=== PATIENT | female | born 1990 | race Two or more races ===

== ENCOUNTER 2016-06-03 13:18 | Emergency (ER) | payer OTHER ==
[2016-06-03 13:23] VITALS: PULSE 60; RESP 16
--- NOTE | 2016-06-03 13:46 | EDPHY ---
H & P Stated Complaint: Migraine x 2 wks;saw PCP,no RX given;+nausea Time Seen by Provider: 06/03/16 13:33 HPI/ROS: CHIEF COMPLAINT: Headache HISTORY OF PRESENT ILLNESS: The patient presents to the ED with a progressively worsening intermittent headache for the past 10 days. The patient describes a dull but severe left retro-orbital and temporal discomfort. Patient does have a reported history of migraine syndrome but reports much milder atypical symptoms with prior migraines. The patient denies any history of recent fall or trauma. She specifically denies peripheral numbness, weakness , diplopia, cervical manipulation, neck pain or injury. The patient is currently being treated for possible PID and recently was given an IM dose of ceftriaxone and apparently will be starting doxycycline today. The patient denies any significant abdominal pain or vaginal discharge the time of my evaluation in the ED. The patient does not smoke or use control of pills. The patient does take Celexa. REVIEW OF SYSTEMS: A comprehensive 10 point review of systems is otherwise negative aside from elements mentioned in the history of present illness. Source: Patient Exam Limitations: No limitations - Personal History LMP (Females 10-55): 8-14 Days Ago Current Tetanus Diphtheria and Acellular Pertussis (TDAP): Yes - Medical/Surgical History Other PMH: migraines. depression - Social History Smoking Status: Never smoked - Physical Exam Exam: General Appearance: Alert, no distress Eyes: Pupils equal and round no pallor or injection ENT, Mouth: Mucous membranes moist Respiratory: There are no retractions, lungs are clear to auscultation Cardiovascular: Regular rate and rhythm Gastrointestinal: Abdomen is soft and nontender, no masses, bowel sounds normal Neurological: A&O, normal motor function, normal sensory exam, normal cranial nerves Skin: Warm and dry, no rashes Musculoskeletal: Neck is supple nontender Extremities: symmetrical, full range of motion Constitutional: Initial Vital Signs Temperature (C) 36.7 C 06/03/16 13:20 Heart Rate 60 06/03/16 13:20 Respiratory Rate 16 06/03/16 13:20 Blood Pressure 113/64 06/03/16 13:20 O2 Sat (%) 98 06/03/16 13:20 O2 Delivery Mode Room Air Allergies/Adverse Reactions: No Known Allergies Allergy (Unverified 06/03/16 13:23) Home Medications: Medication Instructions Recorded Ondansetron Odt [Zofran Odt] 4 mg PO Q4PRN PRN #20 tab 06/03/16 Sertraline HCl [Zoloft 25mg (*)] 25 mg PO DAILY 06/03/16 Medical Decision Making - Diagnostics Imaging: MRI brain without contrast: Images reviewed by myself and discussed with radiologist Dr. Az Shaikh. Negative for acute abnormality, indirect evidence of central vein thrombosis, tumor or hemorrhage. ED Course/Re-evaluation: The patient presents to the emergency department for evaluation of an intermittent headache for the past 10 days. The features of this headache are consistent with a migraine type headache with a strong left retro-orbital component. The patient is noted to have a normal neurologic examination here in the ED. Given the chronicity of her headache and increased severity an MRI of the brain was obtained which is normal. The patient was treated with IV Reglan and Toradol. I re-evaluated the patient at 3:40 p.m. and her headache is entirely resolved. She is comfortable being discharged home. She will be given a prescription for Zofran and encouraged to take ibuprofen as needed. Differential Diagnosis: Differential diagnosis considered includes intracranial mass, cavernous vein thrombosis, migraine syndrome, intracranial hemorrhage, meningitis, tension headache - Data Points Laboratory Results: Laboratory Results 06/03/16 14:00 06/03/16 14:00 06/03/16 06/03/16 06/03/16 14:00 14:00 14:00 WBC 8.41 10^3/uL 10^3/uL (3.80-9.50) RBC 4.91 10^6/uL 10^6/uL (4.18-5.33) Hgb 14.2 g/dL g/dL (12.6-16.3) Hct 42.9 % % (38.0-47.0) MCV 87.4 fL fL (81.5-99.8) MCH 28.9 pg pg (27.9-34.1) MCHC 33.1 g/dL g/dL (32.4-36.7) RDW 12.5 % % (11.5-15.2) Plt Count 256 10^3/uL 10^3/uL (150-400) MPV 8.8 fL fL (8.7-11.7) Neut % (Auto) 68.9 % % (39.3-74.2) Lymph % (Auto) 25.7 % % (15.0-45.0) Kay % (Auto) 4.8 % % (4.5-13.0) Eos % (Auto) 0.4 % L % (0.6-7.6) Baso % (Auto) 0.1 % L % (0.3-1.7) Nucleat RBC Rel Count 0.0 % % (0.0-0.2) Absolute Neuts (auto) 5.80 10^3/uL 10^3/uL (1.70-6.50) Absolute Lymphs (auto) 2.16 10^3/uL 10^3/uL (1.00-3.00) Absolute Monos (auto) 0.40 10^3/uL 10^3/uL (0.30-0.80) Absolute Eos (auto) 0.03 10^3/uL 10^3/uL (0.03-0.40) Absolute Basos (auto) 0.01 10^3/uL L 10^3/uL (0.02-0.10) Absolute Nucleated RBC 0.00 10^3/uL 10^3/uL (0-0.01) Immature Gran % 0.1 % % (0.0-1.1) Immature Gran # 0.01 10^3/uL 10^3/uL (0.00-0.10) Sodium 142 mEq/L mEq/L (134-144) Potassium 3.6 mEq/L mEq/L (3.5-5.2) Chloride 108 mEq/L mEq/L (97-110) Carbon Dioxide 24 mEq/l mEq/l (22-31) Anion Gap 10 mEq/L mEq/L (8-16) BUN 11 mg/dL mg/dL (7-23) Creatinine 0.7 mg/dL mg/dL (0.6-1.0) Estimated GFR > 60 Glucose 83 mg/dL mg/dL (70-100) Calcium 9.2 mg/dL mg/dL (8.5-10.4) Beta HCG, Qual NEGATIVE Medications Given: Discontinued Medications Ketorolac Tromethamine (Toradol) 30 mg IVP EDNOW ONE Stop: 06/03/16 13:55 Last Admin: 06/03/16 14:18 Dose: 30 mg Metoclopramide HCl (Reglan Injection) 10 mg IVP EDNOW ONE Stop: 06/03/16 13:55 Last Admin: 06/03/16 14:19 Dose: 10 mg Departure - Departure Disposition: Home, Routine, Self-Care Clinical Impression: Migraine Condition: Good Instructions: Acute Headache (ED), Migraine Headache (ED) Additional Instructions: 1. Please return to the ED for any concerns. 2. Take Ibuprofen or Motrin 600 mg by mouth three times a day. 3. Zofran for nausea. Referrals: Earl Bobo DO [Medical Doctor] - As per Instructions Prescriptions: Ondansetron Odt [Zofran Odt] 4 mg PO Q4PRN PRN #20 tab PRN Reason: For Nausea
[2016-06-03] MEDS ORDERED: METOCLOPRAMIDE 10 MG/2 ML VIAL IVP ONE (13:54)
[2016-06-03] MEDS ORDERED: KETOROLAC 30 MG/1 ML SDV IVP ONE (13:54)
[2016-06-03 14:08] LABS: % IMMATURE GRANULYOCYTES 0.1 % (0.0-1.1); ABSOLUTE IMMATURE GRANULOCYTES 0.01 10^3/uL (0.00-0.10); ADD DIFF? NO; ADD MORPH? NO; ADD SCAN? NO; ATYPICAL LYMPHOCYTE FLAG 0 (0-99); FRAGMENT RBC FLAG 0 (0-99); HEMATOCRIT 42.9 % (38.0-47.0); HEMOGLOBIN 14.2 g/dL (12.6-16.3); LEFT SHIFT FLG 0 (0-99); LIPEMIA HEMOLYSIS FLAG 80 (0-99); MEAN CELL HEMOGLOBIN 28.9 pg (27.9-34.1); MEAN CELL HEMOGLOBIN CONCENTR. 33.1 g/dL (32.4-36.7); MEAN CELL VOLUME 87.4 fL (81.5-99.8); MEAN PLATELET VOLUME 8.8 fL (8.7-11.7); PLATELET CLUMPS FLAG 10 (0-99); PLATELET COUNT 256 10^3/uL (150-400); RED BLOOD CELL COUNT 4.91 10^6/uL (4.18-5.33); RED CELL DISTRIBUTION WIDTH 12.5 % (11.5-15.2)
[2016-06-03 14:21] LABS: ANION GAP 10 mEq/L (8-16); CALCIUM 9.2 mg/dL (8.5-10.4); CARBON DIOXIDE 24 mEq/l (22-31); CHLORIDE 108 mEq/L (97-110); CREATININE 0.7 mg/dL (0.6-1.0); GLOMERULAR FILTRATION RATE > 60; GLUCOSE 83 mg/dL (70-100); POTASSIUM 3.6 mEq/L (3.5-5.2); SODIUM 142 mEq/L (134-144)
[2016-06-03] MEDS ORDERED: NS 1,000 ML IV ONE (15:00)
[2016-06-03 16:00] VITALS: BP 130/78; TEMP 98.4; O2SAT 94
== END 2016-06-03 16:01 | disposition home or self-care (01) ==
DX: G43.909 Migraine, unspecified, not intractable, without status migrainosus (principal)
CPT/HCPCS: 96374; J1885; J2765

== ENCOUNTER 2017-03-29 20:35 | Emergency (ER) | payer OTHER ==
[2017-03-29 20:56] VITALS: RESP 16
--- NOTE | 2017-03-29 20:57 | EDPHY ---
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 She reports that this is similar to her other migraine headaches. She currently started her menses today. She admits that she is in finals and is had increased stress. She has had a poor appetite but has been eating and drinking normally. Modifying Factors: See above Comment: ROS: see HPI Constitutional: No fever, no chills, no weight loss Eyes: No blurred vision Respiratory: No shortness of breath, no cough Cardiovascular: No chest pain Gastrointestinal: No nausea, no vomiting, no diarrhea Genitourinary: No dysuria Extremities: No myalgias Neurologic: No weakness, no numbness Skin: No rashes Hematologic: No bruising, no bleeding MEDICAL/SURGICAL/SOCIAL HISTORY: Medical history: Migraines, depression. Surgical history: Denies Social history: Local college student CONSTITUTIONAL: Extremely well-appearing adult female, awake and alert, no obvious distress HEENT: Atraumatic and normocephalic, PERRL, EOMI. Tympanic membranes clear. Oropharynx clear, no exudate and moist pink mucosa. Airway patent. No lymphadenopathy. No meningismus. No pain with buddhism palpation. Cardiovascular: Normal S1/S2, regular rate, regular rhythm, without murmur rub or gallop. PULMONARY/CHEST: Symmetrical and nontender. Clear to auscultation bilaterally. Good air movement. No accessory muscle usage. ABDOMEN: Soft, nondistended, nontender, no rebound, no guarding, no peritoneal signs, no masses or organomegaly. No CVAT. EXTREMITIES: 2/2 pulses, strength 5/5, no deformities, no clubbing, no cyanosis or edema. NEUROLOGICAL: no focal neuro deficits. GCS 15. Cranial nerves 2-12 grossly intact. Speech clear. SKIN: Warm and dry, no erythema. no rash. Good capillary refill. Source: Patient Exam Limitations: No limitations - Personal History LMP (Females 10-55): Now Current Tetanus/Diphtheria Vaccine: Unsure Current Tetanus Diphtheria and Acellular Pertussis (TDAP): Unsure - Medical/Surgical History Hx Asthma: No Hx Chronic Respiratory Disease: No Hx Diabetes: No Hx Cardiac Disease: No Hx Renal Disease: No Hx Cirrhosis: No Hx Alcoholism: No Hx HIV/AIDS: No Hx Splenectomy or Spleen Trauma: No Other PMH: migraines. depression - Social History Smoking Status: Never smoked Constitutional: Initial Vital Signs Temperature (C) 36.9 C 03/29/17 20:51 Heart Rate 84 03/29/17 20:51 Respiratory Rate 16 03/29/17 20:51 Blood Pressure 121/72 H 03/29/17 20:51 O2 Sat (%) 96 03/29/17 20:51 O2 Delivery Mode Room Air O2 (L/minute) 2 Allergies/Adverse Reactions: No Known Allergies Allergy (Unverified 03/29/17 20:56) Home Medications: Medication Instructions Recorded Acet/Caffeine/Buta Fioricet 1 each PO Q6 PRN #10 tab 03/29/17 [Fioricet (*)] SUMATRIPTAN SUCCINATE 4 mg SQ 03/29/17 Topiramate [Topamax 25MG (*)] 25 mg PO DAILY 03/29/17 Medical Decision Making ED Course/Re-evaluation: IV fluids and IV medications ordered Afebrile no systemic signs. Given 1 L normal saline, placed on 2 L oxygen, IV Toradol, IV Benadryl, IV Decadron given No signs of meningitis/temporal arteritis/CVA/otitis media/sinusitis 2235: Reassessed patient who reports that headache is completely resolved. Asking to be discharged home. This patient was seen under the supervision of my secondary supervising physician. I evaluated care for this patient independently. Patient's presentation, labs/imaging, treatment and plan of care were discussed with secondary supervising physician. Differential Diagnosis: Headache including but not limited to subarachnoid hemorrhage, migraine headache , tension headache and infectious causes such as meningitis, pharyngitis and sinusitis. - Data Points Medications Given: Discontinued Medications Dexamethasone (Decadron Injection) 10 mg IVP EDNOW ONE Stop: 03/29/17 21:14 Last Admin: 03/29/17 21:20 Dose: 10 mg Diphenhydramine HCl (Benadryl Injection) 50 mg IVP EDNOW ONE Stop: 03/29/17 21:14 Last Admin: 03/29/17 21:20 Dose: 50 mg Sodium Chloride (Ns) 1,000 mls @ 0 mls/hr IV ONCE ONE; Wide Open PRN Reason: Protocol Stop: 03/29/17 21:14 Last Admin: 03/29/17 21:20 Dose: 1,000 mls Ketorolac Tromethamine (Toradol) 30 mg IVP EDNOW ONE Stop: 03/29/17 21:14 Last Admin: 03/29/17 21:19 Dose: 30 mg Departure - Departure Disposition: Home, Routine, Self-Care Clinical Impression: Migraine Qualifiers: Migraine type: unspecified Status migrainosus presence: without status migrainosus Intractability: not intractable Qualified Code(s): G43.909 - Migraine, unspecified, not intractable, without status migrainosus Condition: Good Instructions: Migraine Headache (ED) Additional Instructions: Drink plenty of fluids and rest until you are feeling better. Practice stress reducing techniques. Referrals: [facility],. [Clinic] - As per Instructions Prescriptions: Acet/Caffeine/Buta Fioricet [Fioricet (*)] 1 each PO Q6 PRN #10 tab PRN Reason: Headache, Migrane
[2017-03-29] MEDS ORDERED: NS 1,000 ML IV ONE (21:13)
[2017-03-29] MEDS ORDERED: KETOROLAC 30 MG/1 ML SDV IVP ONE (21:13)
[2017-03-29] MEDS ORDERED: DEXAMETHASONE 10 MG/ML VIAL IVP ONE (21:13)
[2017-03-29 22:52] VITALS: BP 110/72; PULSE 70; TEMP 97.9; O2SAT 97
== END 2017-03-29 22:51 | disposition home or self-care (01) ==
DX: G43.909 Migraine, unspecified, not intractable, without status migrainosus (principal); E86.9 Volume depletion, unspecified
CPT/HCPCS: 96374; J1100; J1200; J1885